=== PATIENT | female | born 1950 | race Caucasian/White ===

== ENCOUNTER 2018-07-27 17:42 | Inpatient (IN) | payer MEDICARE, OTHER ==
--- NOTE | 2018-07-27 18:14 | ED Physician Documentation ---
PD HPI ALTERED MENTAL STATUS - Stated complaint Stated Complaint: NEAR SYNC/NAUSEA/BEHAVIORAL - Chief complaint Chief Complaint: General - History obtained from History obtained from: Patient - History of Present Illness Timing - onset: Today Timing - duration: Days (1) Timing - details: Gradual onset Quality / character: Less responsive (The patient and her son say she felt okay yesterday and they were out site seen in doing regular activity. She may have been under hydrated but still seemed okay. Her son says she seemed tired this morning and is slept in which is unusual for her. He went to arouse her in the later morning and she was still seeming sleepy and also a bit confused. She had general weakness. He thought she might be under hydrated and was encouraging fluids but the symptoms continued through the afternoon. She did not have any lateralizing weakness. She had general weakness and this afternoon was feeling unable to walk. She was having some repetition of thoughts and forgetfulness. Her son says she seems somnolent. There is no reported fever. She has no vomiting or diarrhea. She had not had any head cold symptoms.), Confused Associated symptoms: General weakness. No: Fever, Headache, Dyspnea, Cough, NVD, Focal weakness Contributing factors: No: New medication, Recent med change, Recent illness, Intoxicated, Known psych illness Basline status: Alert and oriented X 3, Ambulatory Similar symptoms before: Has not had sx before Recently seen: Not recently seen Review of Systems Constitutional: reports: Chills (this afternoon). denies: Fever, Myalgias Nose: denies: Rhinorrhea / runny nose, Congestion Throat: denies: Sore throat Cardiac: denies: Chest pain / pressure Respiratory: denies: Cough GI: denies: Abdominal Pain, Vomiting, Diarrhea : denies: Dysuria Skin: denies: Rash, Lesions Neurologic: reports: Generalized weakness, Confused, Altered mental status. denies: Focal weakness, Headache, Head injury PD PAST MEDICAL HISTORY - Past Medical History Cardiovascular: None Respiratory: None Neuro: None Endocrine/Autoimmune: None GI: Ulcerative colitis Psych: Other (sleep problems) Musculoskeletal: Chronic back pain - Present Medications Home Medications: Ambulatory Orders Medication Instructions Recorded Confirmed Albuterol 0 mg 07/27/18 Cetirizine [ZyrTEC] 10 mg DAILY 07/27/18 07/27/18 Cyclobenzaprine [Flexeril] 10 mg TID 07/27/18 07/27/18 Denosumab [Prolia] 0 mg 07/27/18 EPINEPHrine [Epipen Jr] 0.15 mg IM 07/27/18 Famotidine [Pepcid] 20 mg PO ONCE 07/27/18 07/27/18 Gabapentin 300 mg BID 07/27/18 07/27/18 Levothyroxine [Synthroid] 137 mcg PO QDAC 07/27/18 07/27/18 Oxybutynin [Ditropan] 5 mg TID 07/27/18 07/27/18 Sulindac 200 mg BID 07/27/18 07/27/18 Trazodone HCl 100 mg QPM 07/27/18 07/27/18 sulfaSALAzine [Azulfidine] 500 mg BID 07/27/18 07/27/18 traMADol [Ultram] 50 mg Q6H 07/27/18 07/27/18 - Allergies Allergies/Adverse Reactions: Allergies Allergy/AdvReac Type Severity Reaction Status Date / Time amoxicillin [From Augmentin] Allergy Anaphylaxis Verified 07/27/18 17:49 azithromycin [From Zithromax] Allergy Anaphylaxis Verified 07/27/18 17:49 baclofen Allergy Anaphylaxis Verified 07/27/18 17:49 clarithromycin Allergy Anaphylaxis Verified 07/27/18 17:49 clavulanic acid Allergy Anaphylaxis Verified 07/27/18 17:49 [From Augmentin] codeine Allergy Anaphylaxis Verified 07/27/18 17:49 hydroxychloroquine Allergy Anaphylaxis Verified 07/27/18 17:49 [From Plaquenil] lactase [From Dairy Aid] Allergy Nausea Verified 07/27/18 17:49 metronidazole Allergy Anaphylaxis Verified 07/27/18 17:49 morphine Allergy Anaphylaxis Verified 07/27/18 17:49 PD ED PE NORMAL - Vitals Vital signs reviewed: Yes - General General: Alert and oriented X 3, Well developed/nourished - HEENT HEENT: Atraumatic, Ears normal, Moist mucous membranes, Pharynx benign - Neck Neck: Supple, no meningeal sign, No adenopathy - Cardiac Cardiac: RRR, No murmur - Respiratory Respiratory: Clear bilaterally - Abdomen Abdomen: Normal bowel sounds, Soft, Non tender, Non distended - Female Female : Deferred - Rectal Rectal: Deferred - Back Back: No CVA TTP - Derm Derm: Normal color, Warm and dry - Extremities Extremities: No tenderness to palpate, Normal ROM s pain, No edema, No calf tenderness / cord - Neuro Neuro: Alert and oriented X 3, No motor deficit, Other (poor short term recall and asks similar questions again. Seems somewhat somnolent. Slightly fidgety. ) Results - Vitals Vitals: Vital Signs - 24 hr 07/27/18 07/27/18 17:49 19:56 Temperature 37.1 C 37.3 C Heart Rate 103 H 87 Respiratory 16 16 Rate Blood Pressure 148/101 H 115/74 O2 Saturation 92 96 Oxygen O2 Source Room air - Labs Labs: Laboratory Tests 07/27/18 07/27/18 07/27/18 18:20 18:20 19:10 WBC 18.5 H RBC 4.47 Hgb 14.6 Hct 45.4 MCV 101.6 H MCH 32.7 H MCHC 32.2 RDW 12.5 Plt Count 261 MPV 11.2 H Neut # (Auto) Not Reportable Lymph # (Auto) Not Reportable [place] # (Auto) Not Reportable Eos # (Auto) Not Reportable Baso # (Auto) Not Reportable Absolute Nucleated RBC Not Reportable Total Counted 100 Band Neuts % (Manual) 27 H Abnorm Lymph % (Manual) 0 Nucleated RBC % Not Reportable Neutrophils # (Manual) 16.7 H Lymphocytes # (Manual) 0.6 L Monocytes # (Manual) 1.3 H Eosinophils # (Manual) 0.0 Basophils # (Manual) 0.0 Differential Comment MANUAL DIFFERENTIAL Manual Slide Review Indicated Platelet Estimate NORMAL (130-450,000) Platelet Morphology 1+ LARGE PLATELETS RBC Morph Micro Appear NORMAL APPEARANCE Sodium 136 Potassium 4.0 Chloride 97 L Carbon Dioxide 25 Anion Gap 14.0 H BUN 28 H Creatinine 0.8 Estimated GFR (MDRD) 71 L Glucose 168 H Lactic Acid Calcium 9.6 Magnesium 2.0 Total Bilirubin 1.1 H AST 43 H ALT 29 Alkaline Phosphatase 86 Total Protein 6.9 Albumin 4.3 Globulin 2.6 Albumin/Globulin Ratio 1.7 Lipase 19 L Urine Color DARK YELLOW Urine Clarity CLEAR Urine pH 5.0 Ur Specific [place] 1.025 Urine Protein TRACE Urine Glucose (UA) NEGATIVE Urine Ketones TRACE Urine Occult Blood NEGATIVE Urine Nitrite POSITIVE H Urine Bilirubin NEGATIVE Urine Urobilinogen 1 (NORMAL) Ur Leukocyte Esterase TRACE H Urine RBC 0-5 Urine WBC 6-10 H Ur Squamous Epith Cells RARE Squamous Urine Bacteria Many H Ur Microscopic Review INDICATED Urine Culture Comments INDICATED Urine Opiates Screen NEGATIVE Ur Oxycodone Screen NEGATIVE Urine Methadone Screen NEGATIVE Ur Propoxyphene Screen NEGATIVE Ur Barbiturates Screen NEGATIVE Ur Tricyclics Screen POSITIVE H Ur Phencyclidine Scrn NEGATIVE Ur Amphetamine Screen NEGATIVE U Methamphetamines Scrn NEGATIVE U Benzodiazepines Scrn POSITIVE H Urine Cocaine Screen NEGATIVE U Cannabinoids Screen NEGATIVE Ethyl Alcohol < 5.0 07/27/18 19:12 WBC RBC Hgb Hct MCV MCH MCHC RDW Plt Count MPV Neut # (Auto) Lymph # (Auto) [place] # (Auto) Eos # (Auto) Baso # (Auto) Absolute Nucleated RBC Total Counted Band Neuts % (Manual) Abnorm Lymph % (Manual) Nucleated RBC % Neutrophils # (Manual) Lymphocytes # (Manual) Monocytes # (Manual) Eosinophils # (Manual) Basophils # (Manual) Differential Comment Manual Slide Review Platelet Estimate Platelet Morphology RBC Morph Micro Appear Sodium Potassium Chloride Carbon Dioxide Anion Gap BUN Creatinine Estimated GFR (MDRD) Glucose Lactic Acid 3.0 H* Calcium Magnesium Total Bilirubin AST ALT Alkaline Phosphatase Total Protein Albumin Globulin Albumin/Globulin Ratio Lipase Urine Color Urine Clarity Urine pH Ur Specific [place] Urine Protein Urine Glucose (UA) Urine Ketones Urine Occult Blood Urine Nitrite Urine Bilirubin Urine Urobilinogen Ur Leukocyte Esterase Urine RBC Urine WBC Ur Squamous Epith Cells Urine Bacteria Ur Microscopic Review Urine Culture Comments Urine Opiates Screen Ur Oxycodone Screen Urine Methadone Screen Ur Propoxyphene Screen Ur Barbiturates Screen Ur Tricyclics Screen Ur Phencyclidine Scrn Ur Amphetamine Screen U Methamphetamines Scrn U Benzodiazepines Scrn Urine Cocaine Screen U Cannabinoids Screen Ethyl Alcohol - Rads (name of study) head CT Radiology: Prelim report reviewed (no acute process), EMP read contemporaneously, See rad report PD MEDICAL DECISION MAKING - ED course Complexity details: reviewed results (The patient has an elevated white count and positive urinalysis consistent with UTI. She has an elevated lactate. This along with her mentation change in general weakness would suggest early urosepsis. We will start IV fluids and antibiotics.), considered differential, d/w patient Departure - Departure Disposition: 66 [facility] DC/Xfer Clinical Impression: Altered mental status Qualifiers: Altered mental status type: stupor Qualified Code(s): R40.1 - Stupor UTI (urinary tract infection) Qualifiers: Urinary tract infection type: acute pyelonephritis Qualified Code(s): N10 - Acute pyelonephritis Sepsis Qualifiers: Sepsis type: sepsis due to unspecified organism Qualified Code(s): A41.9 - Sepsis, unspecified organism Condition: Stable Record reviewed to determine appropriate education?: Yes Discharge Date/Time: 07/27/18 21:18
[2018-07-27] MEDS ORDERED: SODIUM CHLORIDE 0.9% 1,000 ML IV ONE ×2 (18:52→20:44)
[2018-07-27 19:02] LABS: BASOPHILS % (AUTO) 0.3 %; EOSINOPHILS % (AUTO) 0.3 %; HGB - HEMOGLOBIN 14.6 g/dL (12.0-16.0); MEAN CORPUSCULAR HEMOGLOBIN 32.7 pg (27.0-31.0); MEAN CORPUSCULAR HGB CONC 32.2 g/dL (32.0-36.0); MEAN CORPUSCULAR VOLUME 101.6 fL (81.0-99.0); MEAN PLATELET VOLUME 11.2 fL (7.9-10.8); MONOCYTES % (AUTO) 9.4 %; NEUTROPHILS % (AUTO) 86.2 %; PLT - PLATELET COUNT 261 10^3/uL (130-450); RED BLOOD COUNT 4.47 10^6/uL (4.20-5.40); RED CELL DISTRIBUTION WIDTH 12.5 % (12.0-15.0); WHITE BLOOD COUNT 18.5 x10^3/uL (4.8-10.8)
[2018-07-27 19:10] LABS: ALBUMIN 4.3 g/dL (3.2-5.5); ALBUMIN/GLOBULIN RATIO 1.7 (1.0-2.2); ALKALINE PHOSPHATASE 86 IU/L (42-121); ALT ALANINE AMINOTRANSFERASE 29 IU/L (10-60); AST ASPARTATE AMINOTRANSFERASE 43 IU/L (10-42); BILIRUBIN,TOTAL 1.1 mg/dL (0.2-1.0); BUN - BLOOD UREA NITROGEN 28 mg/dL (6-20); CALCIUM 9.6 mg/dL (8.5-10.3); CARBON DIOXIDE - CO2 25 mmol/L (21-32); CHLORIDE 97 mmol/L (101-111); CREATININE 0.8 mg/dL (0.4-1.0); GFR - MDRD 71 (>89); GLUCOSE 168 mg/dL (70-100); LIPASE 19 U/L (22-51); SODIUM 136 mmol/L (135-145); TOTAL PROTEIN 6.9 g/dL (6.7-8.2)
[2018-07-27 19:22] LABS: MUDS CUTOFF CONCENTRATIONS CUTOFF CONC BELOW:
[2018-07-27 19:27] LABS: ABNORMAL LYMPHS % (MANUAL) 0 %
[2018-07-27 19:32] LABS: GLUCOSE, URINE (UA) NEGATIVE (NEGATIVE); KETONES,URINE (UA) TRACE mg/dL (NEGATIVE); LEUKOCYTE ESTERASE, URINE TRACE (NEGATIVE); NITRITE,URINE POSITIVE (NEGATIVE); OCCULT BLOOD,URINE NEGATIVE (NEGATIVE); PROTEIN,URINE TRACE mg/dL (NEGATIVE); UROBILINOGEN,URINE 1 (NORMAL) E.U./dL (NORMAL)
[2018-07-27 19:44] LABS: BILIRUBIN,URINE NEGATIVE (NEGATIVE); CLARITY,URINE CLEAR (CLEAR); ICTOTEST,URINE NEGATIVE
[2018-07-27 19:45] LABS: BACTERIA,URINE Many /HPF (None Seen); METHADONE SCREEN, URINE NEGATIVE (NEGATIVE); OXYCODONE SCREEN, URINE NEGATIVE (NEGATIVE); PROPOXYPHENE SCREEN, URINE NEGATIVE (NEGATIVE); RBC,URINE 0-5 /HPF (0-5); SQUAMOUS EPITHELIAL CELL,UR RARE Squamous (<= Few)
[2018-07-27 19:46] LABS: AMPHETAMINE SCREEN,URINE NEGATIVE (NEGATIVE); BENZODIAZEPINES SCREEN, URINE POSITIVE (NEGATIVE); COCAINE SCREEN URINE NEGATIVE (NEGATIVE); METHAMPHETAMINES SCREEN, URINE NEGATIVE (NEGATIVE); OPIATE SCREEN, URINE NEGATIVE (NEGATIVE); TRICYCLIC ANTIDEPRESSANT,URINE POSITIVE (NEGATIVE)
[2018-07-27] MEDS ORDERED: cefTRIAXone 1 GM VIAL IVP STA (19:50)
--- NOTE | 2018-07-27 19:53 | CT Report ---
Reason: altered mental status; sleepy/confused Procedure Date: 07/27/2018 Accession Number: [id number] / [id number] Procedure: CT - HEAD WO CPT Code: FULL RESULT: EXAM: CT HEAD EXAM DATE: 07/27/2018 07:24 PM. CLINICAL HISTORY: Altered mental status; sleepy/confused. COMPARISON: None. TECHNIQUE: Multiaxial CT images were obtained from the foramen magnum to the vertex. Reformats: Sagittal and coronal. IV contrast: None. In accordance with CT protocol optimization, one or more of the following dose reduction techniques were utilized for this exam: automated exposure control, adjustment of mA and/or KV based on patient size, or use of iterative reconstructive technique. FINDINGS: Parenchyma: No intraparenchymal hemorrhage. No evidence of mass, midline shift, or CT findings of infarction. Maldonado-white differentiation is distinct. Extraaxial Spaces: Normal for age. No subdural or epidural collections identified. Ventricles: Normal in size and position. Sinuses and Orbits: Imaged paranasal sinuses, orbits, and mastoids show no significant abnormality. Bilateral cataract surgery. Bones: No evidence of fracture or calvarial defect. Other: None. IMPRESSION: Normal head CT. RADIA
[2018-07-27 19:55] LABS: BAND NEUTROPHILS % (MANUAL) 27 %; DIFFERENTIAL COMMENT MANUAL DIFFERENTIAL; LYMPHOCYTES # (MANUAL) 0.6 10^3/uL (1.5-3.5); LYMPHOCYTES % (MANUAL) 3 %; MONOCYTES # (MANUAL) 1.3 10^3/uL (0.0-1.0); PLATELET ESTIMATE, MANUAL NORMAL (130-450,000) (NORMAL); PLATELET MORPHOLOGY 1+ LARGE PLATELETS (NORMAL); RBC MORPHOLOGY (MULTIPLE) NORMAL APPEARANCE (NORMAL)
[2018-07-27] MEDS ORDERED: SODIUM CHLORIDE 0.9% IV STA (20:44)
[2018-07-27] MEDS ORDERED: GENTAMICIN IV STA (20:44)
[2018-07-27] MEDS ORDERED: ONDANSETRON 4 MG/2 ML VIAL IVP STA (20:45)
[2018-07-27] MEDS ORDERED: SODIUM CHLORIDE FLUSH 0.9% 10 ML SYRINGE IVP PRN (21:01)
[2018-07-27] MEDS ORDERED: ONDANSETRON 4 MG/2 ML VIAL IVP PRN (21:01)
[2018-07-27] MEDS ORDERED: ACETAMINOPHEN 325 MG TABLET PO PRN (21:01)
--- NOTE | 2018-07-27 21:56 | HISTORY & PHYSICAL EXAMINATION ---
History of Present Illness - Admitted From Admitted From:: [facility] ED - History Obtained From Records Reviewed: yes History obtained from: patient and son - History of Present Illness HPI Comment/Other: Patient seen on 07/27/18 at 2200pm Patient is a 67 y/o female who was brought in by family because she was very weak today. When her son took her blood pressure it was intially elevated, then subsequently low from SBP of 175 to 90. The patient is visiting from [place]. Yesterday they were out walking around [facility]. In the ED, work up included a CBC. She had a WBC of 18.6, a lactic acid of 3.0. She was also tachycardic. Her UA was strongly suggestive of a UTI. She denied chest pain, LOI, abd pain. She was nauseous but no vomiting. She denied burning with urination but reported increased urinary frequency and dark urine. As a result of her symptoms, she is being admitted for further management. History - Past Medical History Cardiovascular: reports: None Respiratory: reports: None, COPD Neuro: reports: None Endocrine/Autoimmune: reports: None, HyPOthyroidism GI: reports: GERD, Ulcerative colitis : reports: Incontinence Psych: reports: Other Musculoskeletal: reports: Osteoarthritis, Fibromyalgia, Rheumatoid arthritis, Osteoporosis, Chronic back pain Other Past Medical History: Vit B12 Deficiency Anemia. Vit D Deficiency - Past Surgical History General: reports: Cholecystectomy Ortho: reports: Knee replacement, Shoulder arthroplasty, Spine surgery, Other HEENT: reports: Cataracts Other past surgical history: bunions bilaterally - Family & Social History Family History: Mother: Cancer (mother, aunt, cousin: breast cancer), Father: Diabetes, Type 2 Family History Comment/Other: She is an only child Living arrangement: At home Social History Notes: She is a former smoker. Rarely consumes alcohol. No illicit drug use - POLST Patient has POLST: No POLST Status: Full Code Meds/Allgy - Home Medications Home Medications: Ambulatory Orders Medication Instructions Recorded Confirmed Albuterol 0 mg 07/27/18 Cetirizine [ZyrTEC] 10 mg DAILY 07/27/18 07/27/18 Cyclobenzaprine [Flexeril] 10 mg TID 07/27/18 07/27/18 Denosumab [Prolia] 0 mg 07/27/18 EPINEPHrine [Epipen Jr] 0.15 mg IM 07/27/18 Famotidine [Pepcid] 20 mg PO ONCE 07/27/18 07/27/18 Gabapentin 300 mg BID 07/27/18 07/27/18 Levothyroxine [Synthroid] 137 mcg PO QDAC 07/27/18 07/27/18 Oxybutynin [Ditropan] 5 mg TID 07/27/18 07/27/18 Sulindac 200 mg BID 07/27/18 07/27/18 Trazodone HCl 100 mg QPM 07/27/18 07/27/18 sulfaSALAzine [Azulfidine] 500 mg BID 07/27/18 07/27/18 traMADol [Ultram] 50 mg Q6H 07/27/18 07/27/18 - Allergies Allergies/Adverse Reactions: Allergies Allergy/AdvReac Type Severity Reaction Status Date / Time amoxicillin [From Augmentin] Allergy Anaphylaxis Verified 07/27/18 17:49 azithromycin [From Zithromax] Allergy Anaphylaxis Verified 07/27/18 17:49 baclofen Allergy Anaphylaxis Verified 07/27/18 17:49 clarithromycin Allergy Anaphylaxis Verified 07/27/18 17:49 clavulanic acid Allergy Anaphylaxis Verified 07/27/18 17:49 [From Augmentin] codeine Allergy Anaphylaxis Verified 07/27/18 17:49 hydroxychloroquine Allergy Anaphylaxis Verified 07/27/18 17:49 [From Plaquenil] lactase [From Dairy Aid] Allergy Nausea Verified 07/27/18 17:49 metronidazole Allergy Anaphylaxis Verified 07/27/18 17:49 morphine Allergy Anaphylaxis Verified 07/27/18 17:49 Review of Systems - Constitutional Constitutional: reports: Fatigue, Fever, Weakness - Eyes Eyes: denies: Blurred vision, Vision loss, Dipolpia - Ears, Nose & Throat Ears, Nose & Throat: denies: Vertigo, Nasal pain, Sore throat - Cardiovascular Cariovascular: denies: Chest pain, Edema, Lightheadedness, Syncope - Respiratory Respiratory: denies: Cough, Sputum production, Wheezing, Snoring, SOB with exertion - Gastrointestinal Gastrointestinal: reports: Nausea. denies: Abdominal pain, Abdominal distention, Constipation, Diarrhea, Change in bowel habits, Black stools, Vomiting - Genitourinary Genitourinary: reports: Frequency, Incontinence. denies: Dysuria, Urgency, Hematuria, Flank pain - Musculoskeletal Musculoskeletal: denies: Muscle pain, Back pain, Joint pain - Integumentary Integumentary: denies: Rash, Pruritis, Lesions, Dryness - Neurological Neurological: reports: General weakness. denies: Focal weakness, Headache, Dizziness, Numbness, Memory problems - Psychiatric Psychiatric: denies: Depression, Anxiety - Endocrine Endocrine: denies: Polyuria, Polydypsia - Hematologic/Lymphatic Hematologic/Lymphatic: reports: Anemia. denies: Bruising, Petechiae Prior Level of Functionality: Patient is independent of activities of daily living Exam - Vital Signs Reviewed Vital Signs: Yes Vital Signs: Vital Signs x48h Temp Pulse Resp BP Pulse Ox 07/27/18 21:06 37.3 C 07/27/18 21:03 91 16 137/86 H 97 07/27/18 19:56 37.3 C 87 16 115/74 96 07/27/18 17:49 37.1 C 103 H 16 148/101 H 92 - Physical Exam General Appearance: positive: Alert, Mild distress Eyes Bilateral: positive: Normal inspection, EOMI ENT: positive: ENT inspection nml, Dry mucous membranes Neck: positive: Nml inspection, No JVD, Trachea midline Respiratory: positive: Chest non-tender, No respiratory distress, Breath sounds nml. negative: Wheezes, Rales, Rhonchi Cardiovascular: positive: No murmur, Tachycardia Abdomen: positive: Non-tender, No organomegaly, Nml bowel sounds, No distention, Tenderness. negative: Guarding, Rebound Back: positive: Nml inspection Skin: positive: Color nml, No rash, Warm, Dry Extremities: positive: Non-tender, Nml appearance Neurologic/Psychiatric: positive: Oriented x3, CN's nml (2-12) Sepsis Event Note (H) - Evaluation Current Stage of Sepsis: Sepsis Possible source of Sepsis: positive: Genitourinary - Sepsis Criteria Sepsis Criteria: Suspected or Documented, Recorded Heart Rate greater than 90 bpm, WBC count greater than 12,000 or less than 4000, Metabolic: lactate > 2 mmol/L Conclusion/Plan - Problem List (1) Sepsis Conclusion/Plan: Mild 2/2 UTI Patient given 1g rocephin in the ED Will continue daily. IV hydration with NS Tylenol for fever. Repeat lactic acid after 4 hrs Urine and blood cultures pending Qualifiers: Sepsis type: sepsis due to unspecified organism Qualified Code(s): A41.9 - Sepsis, unspecified organism (2) Hypothyroidism Conclusion/Plan: On synthroid. Resume when verified (3) Chronic pain Conclusion/Plan: On tramadol (4) COPD (chronic obstructive pulmonary disease) Conclusion/Plan: Uses albuterol at home Will order duoneb prn (5) Urinary incontinence Conclusion/Plan: On oxybutynin (6) Osteoporosis Conclusion/Plan: On prolia [id number] (7) Rheumatoid aortitis Conclusion/Plan: Will hold sulfasalazine due to sepsis - Lab Results Fish Bones: 07/28/18 04:55 07/28/18 04:55 Core Measures - Anticipated LOS I expect patient to be DC'd or transferred within 96 hours.: Yes - DVT/VTE - Prophylaxis VTE/DVT Device ordered at admit?: Yes VTE/DVT Prophylaxis med ordered at admit?: Yes
[2018-07-27] MEDS: SODIUM CHLORIDE 0.9% 1,000 ML IV SCH (22:22)
[2018-07-27] MEDS: CYCLOBENZAPRINE 10 MG TABLET PO PRN (22:57)
[2018-07-27] MEDS: traMADol 50 MG TABLET PO PRN (22:57)
[2018-07-27] MEDS: traZODone 50 MG TABLET PO SCH ×2 (22:57→23:04)
[2018-07-27] MEDS: prednisoLONE 1% OPHTH DROPS 75 DROPS/5 ML BOTTLE LEFTEYE SCH (22:59)
[2018-07-27] MEDS ORDERED: IPRATROPIUM/ALBUTEROL 3 ML NEB INH PRN (23:03)
[2018-07-27] MEDS: SODIUM CHLORIDE FLUSH 0.9% 10 ML SYRINGE IVP SCH (23:59)
[2018-07-28 05:28] LABS: BASOPHILS % (AUTO) 0.3 %; EOSINOPHILS % (AUTO) 0.1 %; HGB - HEMOGLOBIN 11.7 g/dL (12.0-16.0); LYMPHOCYTES % (AUTO) 10.5 %; MEAN CORPUSCULAR HEMOGLOBIN 32.8 pg (27.0-31.0); MEAN CORPUSCULAR HGB CONC 32.1 g/dL (32.0-36.0); MEAN PLATELET VOLUME 10.9 fL (7.9-10.8); MONOCYTES % (AUTO) 11.6 %; NEUTROPHILS % (AUTO) 76.9 %; PLT - PLATELET COUNT 197 10^3/uL (130-450); RED BLOOD COUNT 3.57 10^6/uL (4.20-5.40); RED CELL DISTRIBUTION WIDTH 12.7 % (12.0-15.0)
[2018-07-28 05:33] LABS: CALCIUM 8.4 mg/dL (8.5-10.3); CREATININE 0.8 mg/dL (0.4-1.0)
[2018-07-28 05:57] LABS: ABNORMAL LYMPHS % (MANUAL) 0 %
[2018-07-28 06:17] LABS: BAND NEUTROPHILS % (MANUAL) 24 %; LYMPHOCYTES # (MANUAL) 1.3 10^3/uL (1.5-3.5); LYMPHOCYTES % (MANUAL) 11 %
[2018-07-28 06:18] LABS: DIFFERENTIAL COMMENT MANUAL DIFFERENTIAL; PLATELET ESTIMATE, MANUAL NORMAL (130-450,000) (NORMAL); RBC MORPHOLOGY (MULTIPLE) NORMAL APPEARANCE (NORMAL)
[2018-07-28] MEDS: SODIUM CHLORIDE 0.9% 1,000 ML IV SCH ×4 (06:21→21:23)
--- NOTE | 2018-07-28 08:10 | PROVIDER PROGRESS NOTE ---
Subjective - Prog Note Date Prog Note Date: 07/28/18 Prog Note Time: 08:09 - Subjective Pt reports feeling: Improved Subjective: Balbina complains of mild tremors and states that this is not her normal state of being. She denies any new symptoms such as chest pain, nausea, vomiting, a new rash or a new cough. She claims that the appearance of her urine has improved. Current Medications - Current Medications Current Medications: Active Medications: Acetaminophen (Tylenol) 650 mg PO Q4HR PRN Albuterol/Ipratropium (Duoneb) 3 ml INH Q4HR PRN Cyclobenzaprine HCl (Flexeril) 10 mg PO TID PRN Gabapentin (Neurontin) 300 mg PO BID DEVON Sodium Chloride (Normal Saline 0.9%) 1,000 mls @ 125 mls/hr IV .Q8H DEVON Ceftriaxone Sodium 1 gm/ (Sodium Chloride) 100 mls @ 200 mls/hr IV DAILY DEVON Levothyroxine Sodium (Synthroid) 137 mcg PO QDAC DEVON Ondansetron HCl (Zofran Inj) 4 mg IVP Q6HR PRN Oxybutynin Chloride (Ditropan) 5 mg PO TID [facility] Polyethylene Glycol (Miralax) 17 gm PO DAILY [facility] Prednisolone (Pred Forte 1% Ophth Drops) 1 drops RIGHTEYE BID DEVON Tramadol HCl (Ultram) 50 mg PO Q6H PRN Trazodone HCl (Desyrel) 100 mg PO QPM [facility] HOME meds: Gabapentin 300 mg PO BID 07/27/18 Oxybutynin [Ditropan] 5 mg PO TID 07/27/18 Sulindac 200 mg PO BID 07/27/18 Trazodone HCl 100 mg QPM 07/27/18 traMADol [Ultram] 50 mg PO Q6H PRN 07/27/18 Cyclobenzaprine HCl 10 mg PO TID PRN 07/28/18 Levothyroxine [Synthroid] 137 mcg PO QDAC 07/28/18 prednisoLONE 1% OPHTH DROPS [Pred Forte 1% Ophth Drops] 1 drops RIGHTEYE BID 07/28/18 Objective - Vital Signs/Intake & Output Reviewed Vital Signs: Yes Vital Signs: Vital Signs x48h Temp Pulse Pulse Resp BP Pulse Ox 07/28/18 07:44 37 C 83 16 94/52 L 93 07/28/18 05:59 37 C 88 16 96 07/28/18 05:00 37 C 88 16 99/61 96 Intake & Output: Intake & Output 07/25/18 07/26/18 07/27/18 07/28/18 23:59 23:59 23:59 23:59 Intake Total 2108.75 997.917 Balance 2108.75 997.917 - Objective General Appearance: positive: No acute distress, Alert, Lethargic Eyes Bilateral: positive: PERRL, No lid inflammation ENT: positive: Pharynx nml, Dry mucous membranes Neck: positive: Thyroid nml, No JVD, Trachea midline Respiratory: positive: Chest non-tender, No respiratory distress, Breath sounds nml Cardiovascular: positive: Regular rate & rhythm, No gallop Peripheral Pulses: 1+ Radial (R), 1+ Radial (L) Abdomen: positive: Non-tender, Nml bowel sounds, Other (rounded, soft) Back: positive: Nml inspection Skin: positive: Color nml, No rash, Warm, Dry, Other (bronze-tanned skin tone) Extremities: positive: Non-tender, Full ROM, Nml appearance, No pedal edema Neurologic/Psychiatric: positive: Oriented x3, CN's nml (2-12), Motor nml, Sensation nml, Weakness, Depressed mood/affect, Other (sluggish responses, easily drifts off to sleep, tremors in hands at rest) Reflexes: Bicep (R): 2+, Bicep (L): 2+ - Lab Results Fish Bones: 07/28/18 04:55 07/28/18 04:55 Other Labs: Lab Results x24hrs 07/28/18 07/28/18 07/28/18 Range/Units 07:38 04:55 04:55 WBC 12.0 H (4.8-10.8) x10^3/uL RBC 3.57 L (4.20-5.40) 10^6/uL Hgb 11.7 L (12.0-16.0) g/dL Hct 36.4 L (37.0-47.0) % MCV 102.0 H (81.0-99.0) fL MCH 32.8 H (27.0-31.0) pg MCHC 32.1 (32.0-36.0) g/dL RDW 12.7 (12.0-15.0) % Plt Count 197 (130-450) 10^3/uL MPV 10.9 H (7.9-10.8) fL Neut # (Auto) Not Reportable Lymph # (Auto) Not Reportable Traill # (Auto) Not Reportable Eos # (Auto) Not Reportable Baso # (Auto) Not Reportable Absolute Nucleated RBC Not Reportable Total Counted 100 Band Neuts % (Manual) 24 H (0 - 10) % Abnorm Lymph % (Manual) 0 % Nucleated RBC % Not Reportable Neutrophils # (Manual) 9.7 H (1.5-6.6) 10^3/uL Lymphocytes # (Manual) 1.3 L (1.5-3.5) 10^3/uL Monocytes # (Manual) 1.0 (0.0-1.0) 10^3/uL Eosinophils # (Manual) 0.0 (0-0.7) 10^3/uL Basophils # (Manual) 0.0 (0-0.1) 10^3/uL Differential Comment MANUAL DIFFERENTIAL Manual Slide Review Platelet Estimate NORMAL (130-450,000) (NORMAL) Platelet Morphology (NORMAL) RBC Morph Micro Appear NORMAL APPEARANCE (NORMAL) Sodium 137 (135-145) mmol/L Potassium 3.9 (3.5-5.0) mmol/L Chloride 102 (101-111) mmol/L Carbon Dioxide 25 (21-32) mmol/L Anion Gap 10.0 (6-13) BUN 20 (6-20) mg/dL Creatinine 0.8 (0.4-1.0) mg/dL Estimated GFR (MDRD) 71 L (>89) Glucose 117 H (70-100) mg/dL POC Whole Bld Glucose 78 (70 - 100) mg/dL Lactic Acid (0.5-2.2) mmol/L Calcium 8.4 L (8.5-10.3) mg/dL Magnesium (1.7-2.8) mg/dL Total Bilirubin (0.2-1.0) mg/dL AST (10-42) IU/L ALT (10-60) IU/L Alkaline Phosphatase (42-121) IU/L Total Protein (6.7-8.2) g/dL Albumin (3.2-5.5) g/dL Globulin (2.1-4.2) g/dL Albumin/Globulin Ratio (1.0-2.2) Lipase (22-51) U/L Urine Color Urine Clarity (CLEAR) Urine pH (5.0-7.5) PH Ur Specific Gordon (1.002-1.030) Urine Protein (NEGATIVE) mg/dL Urine Glucose (UA) (NEGATIVE) mg/dL Urine Ketones (NEGATIVE) mg/dL Urine Occult Blood (NEGATIVE) Urine Nitrite (NEGATIVE) Urine Bilirubin (NEGATIVE) Urine Urobilinogen (NORMAL) E.U./dL Ur Leukocyte Esterase (NEGATIVE) Urine RBC (0-5) /HPF Urine WBC (0-5) /HPF Ur Squamous Epith Cells (<= Few) Urine Bacteria (None Seen) /HPF Ur Microscopic Review Urine Culture Comments Urine Opiates Screen (NEGATIVE) Ur Oxycodone Screen (NEGATIVE) Urine Methadone Screen (NEGATIVE) Ur Propoxyphene Screen (NEGATIVE) Ur Barbiturates Screen (NEGATIVE) Ur Tricyclics Screen (NEGATIVE) Ur Phencyclidine Scrn (NEGATIVE) Ur Amphetamine Screen (NEGATIVE) U Methamphetamines Scrn (NEGATIVE) U Benzodiazepines Scrn (NEGATIVE) Urine Cocaine Screen (NEGATIVE) U Cannabinoids Screen (NEGATIVE) Ethyl Alcohol mg/dL 07/27/18 07/27/18 07/27/18 Range/Units 23:30 19:12 19:10 WBC (4.8-10.8) x10^3/uL RBC (4.20-5.40) 10^6/uL Hgb (12.0-16.0) g/dL Hct (37.0-47.0) % MCV (81.0-99.0) fL MCH (27.0-31.0) pg MCHC (32.0-36.0) g/dL RDW (12.0-15.0) % Plt Count (130-450) 10^3/uL MPV (7.9-10.8) fL Neut # (Auto) Lymph # (Auto) Traill # (Auto) Eos # (Auto) Baso # (Auto) Absolute Nucleated RBC Total Counted Band Neuts % (Manual) (0 - 10) % Abnorm Lymph % (Manual) % Nucleated RBC % Neutrophils # (Manual) (1.5-6.6) 10^3/uL Lymphocytes # (Manual) (1.5-3.5) 10^3/uL Monocytes # (Manual) (0.0-1.0) 10^3/uL Eosinophils # (Manual) (0-0.7) 10^3/uL Basophils # (Manual) (0-0.1) 10^3/uL Differential Comment Manual Slide Review Platelet Estimate (NORMAL) Platelet Morphology (NORMAL) RBC Morph Micro Appear (NORMAL) Sodium (135-145) mmol/L Potassium (3.5-5.0) mmol/L Chloride (101-111) mmol/L Carbon Dioxide (21-32) mmol/L Anion Gap (6-13) BUN (6-20) mg/dL Creatinine (0.4-1.0) mg/dL Estimated GFR (MDRD) (>89) Glucose (70-100) mg/dL POC Whole Bld Glucose (70 - 100) mg/dL Lactic Acid 1.9 3.0 H* (0.5-2.2) mmol/L Calcium (8.5-10.3) mg/dL Magnesium (1.7-2.8) mg/dL Total Bilirubin (0.2-1.0) mg/dL AST (10-42) IU/L ALT (10-60) IU/L Alkaline Phosphatase (42-121) IU/L Total Protein (6.7-8.2) g/dL Albumin (3.2-5.5) g/dL Globulin (2.1-4.2) g/dL Albumin/Globulin Ratio (1.0-2.2) Lipase (22-51) U/L Urine Color DARK YELLOW Urine Clarity CLEAR (CLEAR) Urine pH 5.0 (5.0-7.5) PH Ur Specific Gordon 1.025 (1.002-1.030) Urine Protein TRACE (NEGATIVE) mg/dL Urine Glucose (UA) NEGATIVE (NEGATIVE) mg/dL Urine Ketones TRACE (NEGATIVE) mg/dL Urine Occult Blood NEGATIVE (NEGATIVE) Urine Nitrite POSITIVE H (NEGATIVE) Urine Bilirubin NEGATIVE (NEGATIVE) Urine Urobilinogen 1 (NORMAL) (NORMAL) E.U./dL Ur Leukocyte Esterase TRACE H (NEGATIVE) Urine RBC 0-5 (0-5) /HPF Urine WBC 6-10 H (0-5) /HPF Ur Squamous Epith Cells RARE Squamous (<= Few) Urine Bacteria Many H (None Seen) /HPF Ur Microscopic Review INDICATED Urine Culture Comments INDICATED Urine Opiates Screen NEGATIVE (NEGATIVE) Ur Oxycodone Screen NEGATIVE (NEGATIVE) Urine Methadone Screen NEGATIVE (NEGATIVE) Ur Propoxyphene Screen NEGATIVE (NEGATIVE) Ur Barbiturates Screen NEGATIVE (NEGATIVE) Ur Tricyclics Screen POSITIVE H (NEGATIVE) Ur Phencyclidine Scrn NEGATIVE (NEGATIVE) Ur Amphetamine Screen NEGATIVE (NEGATIVE) U Methamphetamines Scrn NEGATIVE (NEGATIVE) U Benzodiazepines Scrn POSITIVE H (NEGATIVE) Urine Cocaine Screen NEGATIVE (NEGATIVE) U Cannabinoids Screen NEGATIVE (NEGATIVE) Ethyl Alcohol mg/dL 07/27/18 07/27/18 Range/Units 18:20 18:20 WBC 18.5 H (4.8-10.8) x10^3/uL RBC 4.47 (4.20-5.40) 10^6/uL Hgb 14.6 (12.0-16.0) g/dL Hct 45.4 (37.0-47.0) % MCV 101.6 H (81.0-99.0) fL MCH 32.7 H (27.0-31.0) pg MCHC 32.2 (32.0-36.0) g/dL RDW 12.5 (12.0-15.0) % Plt Count 261 (130-450) 10^3/uL MPV 11.2 H (7.9-10.8) fL Neut # (Auto) Not Reportable Lymph # (Auto) Not Reportable Traill # (Auto) Not Reportable Eos # (Auto) Not Reportable Baso # (Auto) Not Reportable Absolute Nucleated RBC Not Reportable Total Counted 100 Band Neuts % (Manual) 27 H (0 - 10) % Abnorm Lymph % (Manual) 0 % Nucleated RBC % Not Reportable Neutrophils # (Manual) 16.7 H (1.5-6.6) 10^3/uL Lymphocytes # (Manual) 0.6 L (1.5-3.5) 10^3/uL Monocytes # (Manual) 1.3 H (0.0-1.0) 10^3/uL Eosinophils # (Manual) 0.0 (0-0.7) 10^3/uL Basophils # (Manual) 0.0 (0-0.1) 10^3/uL Differential Comment MANUAL DIFFERENTIAL Manual Slide Review Indicated Platelet Estimate NORMAL (130-450,000) (NORMAL) Platelet Morphology 1+ LARGE PLATELETS (NORMAL) RBC Morph Micro Appear NORMAL APPEARANCE (NORMAL) Sodium 136 (135-145) mmol/L Potassium 4.0 (3.5-5.0) mmol/L Chloride 97 L (101-111) mmol/L Carbon Dioxide 25 (21-32) mmol/L Anion Gap 14.0 H (6-13) BUN 28 H (6-20) mg/dL Creatinine 0.8 (0.4-1.0) mg/dL Estimated GFR (MDRD) 71 L (>89) Glucose 168 H (70-100) mg/dL POC Whole Bld Glucose (70 - 100) mg/dL Lactic Acid (0.5-2.2) mmol/L Calcium 9.6 (8.5-10.3) mg/dL Magnesium 2.0 (1.7-2.8) mg/dL Total Bilirubin 1.1 H (0.2-1.0) mg/dL AST 43 H (10-42) IU/L ALT 29 (10-60) IU/L Alkaline Phosphatase 86 (42-121) IU/L Total Protein 6.9 (6.7-8.2) g/dL Albumin 4.3 (3.2-5.5) g/dL Globulin 2.6 (2.1-4.2) g/dL Albumin/Globulin Ratio 1.7 (1.0-2.2) Lipase 19 L (22-51) U/L Urine Color Urine Clarity (CLEAR) Urine pH (5.0-7.5) PH Ur Specific Gordon (1.002-1.030) Urine Protein (NEGATIVE) mg/dL Urine Glucose (UA) (NEGATIVE) mg/dL Urine Ketones (NEGATIVE) mg/dL Urine Occult Blood (NEGATIVE) Urine Nitrite (NEGATIVE) Urine Bilirubin (NEGATIVE) Urine Urobilinogen (NORMAL) E.U./dL Ur Leukocyte Esterase (NEGATIVE) Urine RBC (0-5) /HPF Urine WBC (0-5) /HPF Ur Squamous Epith Cells (<= Few) Urine Bacteria (None Seen) /HPF Ur Microscopic Review Urine Culture Comments Urine Opiates Screen (NEGATIVE) Ur Oxycodone Screen (NEGATIVE) Urine Methadone Screen (NEGATIVE) Ur Propoxyphene Screen (NEGATIVE) Ur Barbiturates Screen (NEGATIVE) Ur Tricyclics Screen (NEGATIVE) Ur Phencyclidine Scrn (NEGATIVE) Ur Amphetamine Screen (NEGATIVE) U Methamphetamines Scrn (NEGATIVE) U Benzodiazepines Scrn (NEGATIVE) Urine Cocaine Screen (NEGATIVE) U Cannabinoids Screen (NEGATIVE) Ethyl Alcohol < 5.0 mg/dL ABX Reporting Has patient been on IV antibiotics over the past 48 hours?: Yes Sepsis Event Note (H) - Evaluation Current Stage of Sepsis: Sepsis Possible source of Sepsis: positive: Genitourinary - Sepsis Criteria Sepsis Criteria: Suspected or Documented, Recorded Heart Rate greater than 90 bpm, WBC count greater than 10% bands, WBC count greater than 12,000 or less than 4000, ELEV[employer] TECHNICIAN: altered consciousness (unrelated to primary neuro pathology), Metabolic: lactate > 2 mmol/L Assessment/Plan - Problem List (1) Sepsis Impression: - Elevated WBC count of 18, now down to 12 - Elevated Bands in CBC - Normal lactic acid, now 1.2, down from 3.0 upon admission - Continues to have mild altered mental status on today's exam, memory loss - Treating infection with IV fluids, IV antibiotics, frequent nursing care - Light blood pressures- 94/52, heart rate 80-90's Plan: Continue to treat infection, monitor for worsening Qualifiers: Sepsis type: sepsis due to unspecified organism Qualified Code(s): A41.9 - Sepsis, unspecified organism (2) UTI (urinary tract infection) Impression: - Preliminary UA shows + e. coli with the final results pending - Continues on daily Rocephin - Patient admits to an improvement in the color and concentration of her urine - She has baseline urinary incontinence of which she takes oxybutynin at home - States that she has not had an infection since she was a child - No flank pain indicating kidney involvement Plan: Continue Rocephin, await final cultures, anticipate one more day of stay Qualifiers: Urinary tract infection type: acute pyelonephritis Qualified Code(s): N10 - Acute pyelonephritis (3) Tremors of nervous system Impression: - Patient admits to tremors in bilateral hands/ shoulders - She denies prior episodes and states that prior to coming to the ED, she was very shaky - Patient denies alcohol use, but has has bronze skin, slightly elevated AST on labs, and has tremors - Also found to have macrocytic anemia with an elevated MCV of 102.0 today Plan: Monitor for worsening, check a GGT level in the AM to ensure her story is accurate (4) Acute metabolic encephalopathy Impression: - Patient lethargic on exam, drifts off to sleep easily - Repeats similar statements - Head CT was normal - Patient states that she was "so out of it", that her son had to carry her to the car and bring her into the ED - Patient denies drug or alcohol abuse, tox screen showed benzos, and tricyclics - Tremors noted today at rest Plan: Continue to monitor for improvement (5) Urinary incontinence Impression: - Takes oxybutynin at home TID - Continued here while in the hospital - Patient admits to a hysterectomy at a young age of 21 years - Denies bladder sling, or other bladder complications Plan: continue to treat acute infection (6) COPD (chronic obstructive pulmonary disease) Impression: - takes no home inhalers - Clear lungs on exam - Admits to smoking from age [age], but has since quit - Also admits to life long asthma - Denies ever having pneumonia Plan: continue to monitor (7) Rheumatoid aortitis Impression: - Takes Sulindac (NSAID), tramadol, gabapentin, and tramadol at home - Holding Sulindac as this can be nephrotoxic, resumed all others - Drowsy on exam today - Evidence of RA in BUEs (hand/finger joints) Plan: Continue meds, monitor for pain (8) Hypothyroidism Impression: - Patient denies any recent problems with her thyroid disease and claims that her PCP keeps good track of this - Patient does not know what her last TSH was - No goiter appreciated on exam Plan: Continue Synthroid at 137 mcg daily, check a TSH in the AM Qualifiers: Hypothyroidism type: unspecified Qualified Code(s): E03.9 - Hypothyroidism, unspecified (9) Macrocytic anemia Impression: - Patient has anemia with an H/H of 11.7/36.4 - No evidence of bleeding - Denies alcohol or drug use Plan: Continue to monitor, check GGT, iron studies, B12 and folate in the AM
[2018-07-28] MEDS: SODIUM CHLORIDE FLUSH 0.9% 10 ML SYRINGE IVP SCH ×2 (08:16→16:12)
[2018-07-28] MEDS ORDERED: cefTRIAXone 1 GM in SODIUM CHLORIDE 0.9% MINIBAG 100 ML IV SCH (09:00)
[2018-07-28] MEDS: prednisoLONE 1% OPHTH DROPS 75 DROPS/5 ML BOTTLE LEFTEYE SCH (09:20)
[2018-07-28] MEDS: POLYETHYLENE GLYCOL 3350 17 GM PACKET PO SCH (09:21)
[2018-07-28] MEDS ORDERED: traMADol 50 MG TABLET PO PRN (09:29)
[2018-07-28] MEDS: OXYBUTYNIN 5MG TABLET PO SCH ×2 (13:51→21:11)
--- NOTE | 2018-07-28 15:04 | XRAY Report ---
Reason: fever, chills, sepsis Procedure Date: 07/28/2018 Accession Number: [id number] / [id number] Procedure: XR - Chest 1 View X-Ray CPT Code: 49405 FULL RESULT: EXAM: CHEST RADIOGRAPHY EXAM DATE: 07/28/2018 02:38 PM. CLINICAL HISTORY: Fever, chills, sepsis. COMPARISON: None. TECHNIQUE: 1 view. FINDINGS: Lungs/Pleura: There are apparent bilateral pulmonary nodules measuring up to 5 mm. While some of these may represent vessels on end, exacerbated by atypical technique and rotation, clarification is warranted. No lobar consolidation and no pleural effusion or pneumothorax on this limited study. Mediastinum: Cardiomediastinal silhouette is suggestive of mild borderline cardiomegaly and tortuous aorta, this is typically exacerbated by AP portable technique. Other: None. IMPRESSION: Limited study with suggestion of pulmonary nodules. Recommendation: Chest CT with or without contrast. RADIA
[2018-07-28] MEDS ORDERED: IPRATROPIUM/ALBUTEROL 3 ML NEB INH PRN (15:43)
[2018-07-28] MEDS ORDERED: CEFEPIME 2 GM in SODIUM CHLORIDE 0.9% MINIBAG 100 ML IV SCH (16:00)
[2018-07-28] MEDS: MEROPENEM 1 GM in SODIUM CHLORIDE 0.9% MINIBAG 100 ML IV SCH ×2 (16:10→23:56)
[2018-07-28] MEDS ORDERED: traZODone 50 MG TABLET PO SCH ×2 (21:00)
[2018-07-28] MEDS: CYCLOBENZAPRINE 10 MG TABLET PO PRN (21:11)
[2018-07-28] MEDS: traMADol 50 MG TABLET PO PRN (21:11)
[2018-07-28] MEDS: GABAPENTIN 300 MG CAPSULE PO SCH (21:11)
[2018-07-28] MEDS: prednisoLONE 1% OPHTH DROPS 75 DROPS/5 ML BOTTLE RIGHTEYE SCH (21:12)
[2018-07-29] MEDS: SODIUM CHLORIDE FLUSH 0.9% 10 ML SYRINGE IVP SCH ×2 (03:00→09:10)
[2018-07-29] MEDS: SODIUM CHLORIDE 0.9% 1,000 ML IV SCH (04:07)
[2018-07-29 05:07] LABS: BASOPHILS % (AUTO) 0.3 %; EOSINOPHILS # (AUTO) 0.1 10^3/uL (0.0-0.7); EOSINOPHILS % (AUTO) 1.4 %; HGB - HEMOGLOBIN 9.6 g/dL (12.0-16.0); LYMPHOCYTES # (AUTO) 1.6 10^3/uL (1.5-3.5); LYMPHOCYTES % (AUTO) 17.6 %; MEAN CORPUSCULAR HEMOGLOBIN 32.9 pg (27.0-31.0); MEAN CORPUSCULAR HGB CONC 31.4 g/dL (32.0-36.0); MEAN CORPUSCULAR VOLUME 104.8 fL (81.0-99.0); MONOCYTES # (AUTO) 0.8 10^3/uL (0.0-1.0); MONOCYTES % (AUTO) 9.3 %; NEUTROPHILS # (AUTO) 6.3 10^3/uL (1.5-6.6); NEUTROPHILS % (AUTO) 71.2 %; PLT - PLATELET COUNT 151 10^3/uL (130-450); RED BLOOD COUNT 2.92 10^6/uL (4.20-5.40); RED CELL DISTRIBUTION WIDTH 13.2 % (12.0-15.0); WHITE BLOOD COUNT 8.9 x10^3/uL (4.8-10.8)
[2018-07-29 05:19] LABS: ALBUMIN 2.5 g/dL (3.2-5.5); ALBUMIN/GLOBULIN RATIO 1.1 (1.0-2.2); CALCIUM 7.6 mg/dL (8.5-10.3); CREATININE 0.6 mg/dL (0.4-1.0); TOTAL PROTEIN 4.7 g/dL (6.7-8.2)
[2018-07-29] MEDS: OXYBUTYNIN 5MG TABLET PO SCH (06:17)
[2018-07-29] MEDS ORDERED: LEVOTHYROXINE 25 MCG TABLET PO SCH (07:00)
[2018-07-29] MEDS ORDERED: LEVOTHYROXINE 112 MCG TABLET PO SCH (07:00)
[2018-07-29 08:55] VITALS: BP 101/63
[2018-07-29] MEDS: MEROPENEM 1 GM in SODIUM CHLORIDE 0.9% MINIBAG 100 ML IV SCH (09:06)
[2018-07-29] MEDS: GABAPENTIN 300 MG CAPSULE PO SCH (09:08)
[2018-07-29] MEDS: prednisoLONE 1% OPHTH DROPS 75 DROPS/5 ML BOTTLE RIGHTEYE SCH (09:09)
[2018-07-29] MEDS: POLYETHYLENE GLYCOL 3350 17 GM PACKET PO SCH (09:09)
--- NOTE | 2018-07-29 11:26 | Discharge Plan ---
Discharge Plan Disposition: Home, Self Care Condition: Good Prescriptions: Cefuroxime Axetil [Cefuroxime] 500 mg PO BID #16 tablet Fluconazole [Diflucan] 100 mg PO DAILY #5 tablet Levothyroxine [Synthroid] 125 mcg PO QDAC #30 tablet Saccharomyces Boulardii [Florastor] 250 mg PO BID #60 capsule Diet: Regular Activity Restrictions: Activity as Tolerated Shower Restrictions: No Weight Bearing: Full Weight Health Concerns: Preventing further UTIs Follow up for pulmonary nodule Adjustment in your Synthroid dose based on your TSH level Plan of Treatment: Continue your antibiotics for the next 8 days, drink plenty of fluids, especially when flying back home. logging [facility] [place], [place]. Care Goals: Staying out of the hospital Prevention of infection Additional Instructions or Follow Up instructions: You were admitted for sepsis (a whole body infection), and this resolved after you began treatment for your bladder infection. A chest x-ray was done yesterday, which showed lung nodules. As long as you are not getting pneumonia and do not cough up blood, a chest CT scan can be done in the next 6 months to take a closer look at these nodules. Since you had a fever just 24 hours ago, a new blood culture sample was taken, and so far these are negative. This means that the infection was likely localized to only your bladder. Avoid diarrhea, and drink plenty of fluids. Some people find that a probiotic is helpful in bladder health. Please see your Primary care provider when you get back to [place]. No Smoking: If you smoke, Please STOP! Call for help.
--- NOTE | 2018-07-29 11:41 | DISCHARGE SUMMARY ---
Discharge Summary Admit Date: 07/27/18 Discharge Date: 07/29/18 Discharging Provider: GALDINO Pradhan Primary Care Provider: Fredo Lundy DO Code Status: Attempt Resuscitation Condition at Discharge: Good Discharge Disposition: 01 Home, Self Care - DIAGNOSES Admission Diagnoses: Sepsis Hypothyroidism Chronic pain COPD (chronic obstructive pulmonary disease) Urinary incontinence Osteoporosis Rheumatoid arthritis Discharge Diagnoses with Status of Each Condition: Sepsis- resolved UTI (urinary tract infection)- final sensitivities from culture results, continue antibiotics for 8 more days Tremors of nervous system- resolved Acute metabolic encephalopathy- resolved Urinary incontinence- chronic, stable COPD (chronic obstructive pulmonary disease)-chronic, stable Rheumatoid arthritis-chronic, stable Hypothyroidism-chronic, stable, lowered dose of Synthroid based on a low TSH of 0.18 Macrocytic anemia-chronic, stable - HPI History of Present Illness: HPI per Dr. 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 The patient was brought in by family because she was very weak today. When her son took her blood pressure it was initially elevated, then subsequently low from SBP of 175 to 90. The patient is visiting from [place] and yesterday they were out walking around [facility]. Upon arrival to the ED, work up included a CBC. She had a WBC of 18.6, a lactic acid of 3.0. She was also tachycardic. Her UA was strongly suggestive of a UTI. She denied chest pain, shortness of breath, abdominal pain or a new cough. She was nauseous but has not vomited. She denied burning with urination but reported increased urinary frequency and dark urine. As a result of her symptoms, she is being admitted for further management. - HOSPITAL COURSE Hospital Course: Sepsis- Elevated WBC count of 18, now down to 8.9 - Elevated Bands in CBC - Normal lactic acid, now 1.2, down from 3.0 upon admission - Mild altered mental status and rigors slowly resolved - Treated infection with IV fluids, IV antibiotics, frequent nursing care - Light blood pressures- 94/52, heart rate 80-90's - Considered resolved upon discharge, no fever for the past 24 hours UTI (urinary tract infection)- UA showed + e. coli with the final results to confirm with a few sensitivities - Changed Rocephin to Meropenem since fever of ~102 F - She has baseline urinary incontinence of which she takes oxybutynin at home - States that she has not had an infection since she was a child - No flank pain indicating kidney involvement - Sensitive to Cefuroxime, so patient was given a dose prior to discharge, and sent to the pharmacy to continue for 8 more days Tremors of nervous system- Patient admits to tremors in bilateral hands/ shoulders - She denies prior episodes and states that prior to coming to the ED, she was very shaky - Patient denies alcohol use, but has has bronze skin, slightly elevated AST on labs, and has tremors - Also found to have macrocytic anemia with an elevated MCV of 102.0, normal GGT, no elevated LFTs- resolved Acute metabolic encephalopathy- Patient lethargic on exam, drifts off to sleep easily, which resolved upon discharge - Head CT was normal - Patient states that she was "so out of it", that her son had to carry her to the car and bring her into the ED - Patient denies drug or alcohol abuse, tox screen showed benzos, and tricyclics Urinary incontinence- Takes oxybutynin at home TID - Continued here while in the hospital - Patient admits to a hysterectomy at a young age of 21 years - Denies bladder sling, or other bladder complications COPD (chronic obstructive pulmonary disease)- takes no home inhalers - Clear lungs on exam - Admits to smoking from age [age], but has since quit - Also admits to life long asthma - Denies ever having pneumonia, now with newly discovered pulmonary nodules of which she has been informed and given teaching information on Rheumatoid arthritis- Takes Sulindac (NSAID), tramadol, gabapentin, and tramadol at home - Holding Sulindac as this can be nephrotoxic, resumed all others - Evidence of RA in BUEs (hand/finger joints) Hypothyroidism- Patient denies any recent problems with her thyroid disease and claims that her PCP keeps good track of this - TSH was low at 0.14 - No goiter appreciated on exam - Synthroid dose was lowered to 125 mcg from 137 mcg daily, check a TSH in the next 4-6 weeks Macrocytic anemia- Patient has anemia with an H/H of 9.6/30.6, but was given more than usual IV fluids with having a fever yesterday - No evidence of bleeding - Denies alcohol or drug use Pulmonary nodules- Found on plain chest x-ray, will need follow up Disposition: The patient was medically stable and discharged home with her son and [id number]. She plans to stay another week, then fly back to her home in [place]. - ALLERGIES Allergies/Adverse Reactions: Allergies Allergy/AdvReac Type Severity Reaction Status Date / Time amoxicillin [From Augmentin] Allergy Severe Anaphylaxis Verified 07/28/18 15:35 azithromycin [From Zithromax] Allergy Severe Anaphylaxis Verified 07/28/18 15:35 clarithromycin Allergy Severe Anaphylaxis Verified 07/28/18 15:35 clavulanic acid Allergy Severe Anaphylaxis Verified 07/28/18 15:35 [From Augmentin] metronidazole Allergy Severe Anaphylaxis Verified 07/28/18 15:35 baclofen AdvReac ATAXIA Verified 07/28/18 15:35 codeine AdvReac Hallucinati Verified 07/28/18 15:35 ons hydrocodone AdvReac Hallucinati Verified 07/28/18 15:35 ons hydroxychloroquine AdvReac Hallucinati Verified 07/28/18 15:45 [From Plaquenil] ons Milk Containing Products AdvReac Nausea Verified 07/28/18 15:40 morphine AdvReac Hallucinati Verified 07/28/18 15:35 ons wheat AdvReac Nausea Verified 07/28/18 15:38 - MEDICATIONS Home Medications: Ambulatory Orders Medication Instructions Recorded Confirmed Gabapentin 300 mg PO BID 07/27/18 07/28/18 Oxybutynin [Ditropan] 5 mg PO TID 07/27/18 07/28/18 Sulindac 200 mg PO BID 07/27/18 07/28/18 Trazodone HCl 100 mg QPM 07/27/18 07/28/18 traMADol [Ultram] 50 mg PO Q6H PRN 07/27/18 07/28/18 Cyclobenzaprine HCl 10 mg PO TID PRN 07/28/18 07/28/18 prednisoLONE 1% OPHTH DROPS [Pred 1 drops RIGHTEYE BID 07/28/18 07/28/18 Forte 1% Ophth Drops] sulfaSALAzine [Azulfidine] 500 mg PO BID 07/28/18 07/28/18 Cefuroxime Axetil [Cefuroxime] 500 mg PO BID #16 tablet 07/29/18 Fluconazole [Diflucan] 100 mg PO DAILY #5 tablet 07/29/18 Levothyroxine [Synthroid] 125 mcg PO QDAC #30 tablet 07/29/18 Saccharomyces Boulardii [Florastor] 250 mg PO BID #60 capsule 07/29/18 - PHYSICAL EXAM AT DISCHARGE General Appearance: positive: No acute distress, Alert Eyes Bilateral: positive: PERRL ENT: positive: Pharynx nml, No signs of dehydration Neck: positive: Thyroid nml, No JVD, Trachea midline Respiratory: positive: Chest non-tender, No respiratory distress, Breath sounds nml Cardiovascular: positive: Regular rate & rhythm, No gallop Peripheral Pulses: positive: 2+ Abdomen: positive: Non-tender, Nml bowel sounds Back: positive: Nml inspection Skin: positive: Color nml, No rash, Warm, Dry Extremities: positive: Non-tender, Full ROM, Nml appearance, No pedal edema Neurologic/Psychiatric: positive: Oriented x3, CN's nml (2-12), Motor nml, Sensation nml, Mood/affect nml Reflexes: Bicep (R): 3+, Bicep (L): 3+ - LABS Result Diagrams: 07/29/18 04:35 07/29/18 04:35 - DIAGNOSTIC IMAGING Diagnostic Imaging Results: Final report reviewed Diagnostic Imaging Results Comments: EXAM: CHEST RADIOGRAPHY EXAM DATE: 07/28/2018 02:38 PM FINDINGS: Lungs/Pleura: There are apparent bilateral pulmonary nodules measuring up to 5 mm. While some of these may represent vessels on end, exacerbated by atypical technique and rotation, clarification is warranted. No lobar consolidation and no pleural effusion or pneumothorax on this limited study. Mediastinum: Cardiomediastinal silhouette is suggestive of mild borderline cardiomegaly and tortuous aorta, this is typically exacerbated by AP portable technique. Other: None. IMPRESSION: Limited study with suggestion of pulmonary nodules. EXAM: CT HEAD EXAM DATE: 07/27/2018 07:24 PM IMPRESSION: Normal head CT. - SEPSIS Current Stage of Sepsis: Resolved Possible source of Sepsis: Genitourinary - FOLLOW UP Follow Up: Disposition: Home, Self Care Prescriptions: Cefuroxime Axetil [Cefuroxime] 500 mg PO BID #16 tablets Fluconazole [Diflucan] 100 mg PO DAILY #5 tablet Levothyroxine [Synthroid] 125 mcg PO QDAC #30 tablet Saccharomyces Boulardii [Florastor] 250 mg PO BID #60 capsule Additional Instructions or Follow Up instructions: You were admitted for sepsis (a whole body infection), and this resolved after you began treatment for your bladder infection. A chest x-ray was done yesterday, which showed lung nodules. As long as you are not getting pneumonia and do not cough up blood, a chest CT scan can be done in the next 6 months to take a closer look at these nodules. Since you had a fever just 24 hours ago, a new blood culture sample was taken, and so far these are negative. This means that the infection was likely localized to only your bladder. Avoid diarrhea, and drink plenty of fluids. Some people find that a probiotic is helpful in bladder health. Please see your Primary care provider when you get back to [place]. - TIME SPENT Time Spent in Discharge (Minutes): 45
[2018-07-29] MEDS ORDERED: cefUROXime axetil 250 MG TABLET PO SCH (12:00)
== END 2018-07-29 13:25 | disposition home or self-care (01) | DRG 871 ==
LOC: ED 17:42 → MS2 21:01
PROVIDERS: ADMIT Internal Medicine; ATTEND Nurse Practitioner
DX: A41.9 Sepsis, unspecified organism (principal); A41.51 Sepsis due to Escherichia coli [E. coli]; R40.1 Stupor; G93.41 Metabolic encephalopathy; N39.0 Urinary tract infection, site not specified; F11.20 Opioid dependence, uncomplicated; G47.9 Sleep disorder, unspecified; K51.90 Ulcerative colitis, unspecified, without complications; J44.9 Chronic obstructive pulmonary disease, unspecified; M06.9 Rheumatoid arthritis, unspecified; E03.9 Hypothyroidism, unspecified; D53.9 Nutritional anemia, unspecified; D51.9 Vitamin B12 deficiency anemia, unspecified; E55.9 Vitamin D deficiency, unspecified; R32 Unspecified urinary incontinence; R35.0 Frequency of micturition; M79.7 Fibromyalgia; M19.90 Unspecified osteoarthritis, unspecified site; M81.0 Age-related osteoporosis without current pathological fracture; G89.29 Other chronic pain; M54.9 Dorsalgia, unspecified; K21.9 Gastro-esophageal reflux disease without esophagitis; G25.2 Other specified forms of tremor; M20.42 Other hammer toe(s) (acquired), left foot; M20.41 Other hammer toe(s) (acquired), right foot; M21.612 Bunion of left foot; M21.611 Bunion of right foot; D72.819 Decreased white blood cell count, unspecified; R91.8 Other nonspecific abnormal finding of lung field; R79.89 Other specified abnormal findings of blood chemistry; Z96.612 Presence of left artificial shoulder joint; Z96.611 Presence of right artificial shoulder joint; Z96.659 Presence of unspecified artificial knee joint; Z79.1 Long term (current) use of non-steroidal anti-inflammatories (NSAID); Z87.891 Personal history of nicotine dependence
CPT/HCPCS: 36415; 70450; 71045; 80048; 80053; 81001; 82977; 83605; 83690; 83735; 84443; 85025; 87040; 87086; 87181; 93005; 96361; 96365; 96375; 99283; 99284; A9270; J1580; J2185; 80306; 80320; 81003